=== PATIENT | male | born 1985 | race Caucasian/White ===

== ENCOUNTER → 2020-09-08 | Outpatient (CLI) | payer OTHER ==
[~2020-09-08] MED LIST: KEFLEX CAP 500500 MG PO
[2020-09-12 22:09] LABS: AMPHETAMINE Positive (.); AMPHETAMINE GC/MS CONF 4812 ng/mL (Cutoff=500); AMPHETAMINES Positive (Cutoff=1000); AMPHETAMINES, URINE See Final Results ng/mL (Cutoff=1000); BARBITURATE Negative ng/mL (Cutoff=200); BENZODIAZEPINES Negative ng/mL (Cutoff=200); CANNABINOIDS Negative ng/mL (Cutoff=20); COCAINE (METABOLITE) Negative ng/mL (Cutoff=300); CREATININE 178.4 mg/dL (20.0-300.0); MEPERIDINE Negative ng/mL (Cutoff=200); METHADONE Negative ng/mL (Cutoff=300); METHAMPHETAMINE Positive (.); METHAMPHETAMINE GC/MS CONF >3000 ng/mL (Cutoff=500); OPIATES Negative ng/mL (Cutoff=300); PHENCYCLIDINE Negative ng/mL (Cutoff=25); PROPOXYPHENE Negative ng/mL (Cutoff=300)
== END ==
LOC: LAB 13:25
DX: F11.20 Opioid dependence, uncomplicated (principal)
CPT/HCPCS: 80307